=== PATIENT | male | born 1950 | race Caucasian/White ===

== ENCOUNTER 2017-06-18 10:19 | Outpatient (CLI) | payer OTHER ==
[~2017-06-18 10:19] MED LIST: COZAAR50 MG; GLUMETZA1000 MG; LIPITOR40 MG
== END 2017-06-18 10:30 | disposition home or self-care (01) ==
LOC: LAB 10:19
DX: G44.209 Tension-type headache, unspecified, not intractable (principal); G44.219 Episodic tension-type headache, not intractable

== ENCOUNTER → 2017-06-19 | Outpatient (CLI) | payer OTHER | END | disposition home or self-care (01) | LOC: MRI 08:45 | DX: G44.219 Episodic tension-type headache, not intractable (principal); G44.209 Tension-type headache, unspecified, not intractable; G30.8 Other Alzheimer's disease | CPT/HCPCS: 70551 ==

== ENCOUNTER 2018-11-02 09:36 | Outpatient (CLI) | payer OTHER | END 2018-11-02 15:24 | disposition home or self-care (01) | LOC: LAB 09:36 | DX: B34.8 Other viral infections of unspecified site (principal) ==

== ENCOUNTER → 2018-11-26 10:20 | Outpatient (CLI) | payer OTHER | END | disposition home or self-care (01) | LOC: LAB 10:20 | DX: D72.820 Lymphocytosis (symptomatic) (principal); N40.0 Benign prostatic hyperplasia without lower urinary tract symptoms; Z11.4 Encounter for screening for human immunodeficiency virus [HIV] ==

== ENCOUNTER → 2018-11-30 12:01 | Outpatient (CLI) | payer OTHER | END | disposition home or self-care (01) | LOC: LAB 12:01 | DX: D72.820 Lymphocytosis (symptomatic) (principal) ==

== ENCOUNTER → 2018-12-03 | Outpatient (CLI) | payer OTHER | END | disposition home or self-care (01) | LOC: TOM 08:16 | DX: D72.820 Lymphocytosis (symptomatic) (principal) | CPT/HCPCS: 71270; 74177; Q9965 ==

== ENCOUNTER → 2019-07-22 10:03 | Outpatient (CLI) | payer OTHER | END | disposition home or self-care (01) | LOC: LAB 10:03 | PROVIDERS: ATTEND Internal Medicine | DX: Z20.828 Contact with and (suspected) exposure to other viral communicable diseases (principal); Z72.810 Child and adolescent antisocial behavior; M47.9 Spondylosis, unspecified; D72.820 Lymphocytosis (symptomatic); Z86.73 Personal history of transient ischemic attack (TIA), and cerebral infarction without residual deficits; R51 Headache; E55.9 Vitamin D deficiency, unspecified; E11.69 Type 2 diabetes mellitus with other specified complication; E78.00 Pure hypercholesterolemia, unspecified; I13.10 Hypertensive heart and chronic kidney disease without heart failure, with stage 1 through stage 4 chronic kidney disease, or unspecified chronic kidney disease; E11.22 Type 2 diabetes mellitus with diabetic chronic kidney disease; N18.3 Chronic kidney disease, stage 3 (moderate); E11.39 Type 2 diabetes mellitus with other diabetic ophthalmic complication; H40.89 Other specified glaucoma ==

== ENCOUNTER 2019-07-25 11:35 | Outpatient (CLI) | payer OTHER | END 2019-07-25 15:00 | disposition home or self-care (01) | LOC: LAB 11:35 | PROVIDERS: ATTEND Internal Medicine Hematology & Oncology | DX: D72.810 Lymphocytopenia (principal); M47.899 Other spondylosis, site unspecified; N40.0 Benign prostatic hyperplasia without lower urinary tract symptoms ==

== ENCOUNTER 2021-02-05 07:28 | Outpatient (CLI) | payer OTHER | END 2021-02-05 07:35 | disposition home or self-care (01) | LOC: SONOGRAMA 07:28 | PROVIDERS: ATTEND Internal Medicine Hematology & Oncology | DX: R07.89 Other chest pain (principal); Z78.9 Other specified health status; D72.820 Lymphocytosis (symptomatic) ==

== ENCOUNTER 2021-03-02 09:21 | Emergency (ER) | payer OTHER ==
[~2021-03-02] VITALS: Ht 177.8 cm; Wt 72.6 kg
== END 2021-03-02 10:58 | disposition home or self-care (01) ==
LOC: ER 09:21
DX: K59.00 Constipation, unspecified (principal)

== ENCOUNTER 2021-03-05 09:17 | Outpatient (CLI) | payer OTHER | END 2021-03-05 15:00 | disposition home or self-care (01) | LOC: LAB 09:17 | PROVIDERS: ATTEND Internal Medicine | DX: D64.89 Other specified anemias (principal); I11.9 Hypertensive heart disease without heart failure; E11.69 Type 2 diabetes mellitus with other specified complication; E78.00 Pure hypercholesterolemia, unspecified; R80.8 Other proteinuria; R19.5 Other fecal abnormalities; E03.4 Atrophy of thyroid (acquired); E53.8 Deficiency of other specified B group vitamins; N39.0 Urinary tract infection, site not specified; R94.5 Abnormal results of liver function studies; D56.5 Hemoglobin E-beta thalassemia; R97.20 Elevated prostate specific antigen [PSA] ==

== ENCOUNTER 2021-03-09 06:54 | Emergency (ER) | payer OTHER ==
[~2021-03-09] VITALS: Ht 177.8 cm; Wt 72.6 kg
[2021-03-09] MEDS ORDERED: DULCOLAX STOOL100 M1 PO (12:08)
== END 2021-03-09 12:21 | disposition home or self-care (01) ==
LOC: ER 06:54
DX: R07.89 Other chest pain (principal); K59.09 Other constipation

== ENCOUNTER 2021-05-28 08:00 | Outpatient (CLI) | payer OTHER ==
[~2021-05-28 08:00] MED LIST changes: +DULCOLAX STOOL100 M1 PO
== END 2021-05-28 08:30 | disposition home or self-care (01) ==
LOC: PPH VACUNA 08:00
PROVIDERS: ATTEND Emergency Medicine Pediatric Emergency Medicine
DX: Z23 Encounter for immunization (principal)

== ENCOUNTER 2021-11-12 08:29 | Outpatient (CLI) | payer OTHER | END 2021-11-12 08:42 | disposition home or self-care (01) | LOC: TOM 08:29 | PROVIDERS: ATTEND Internal Medicine Gastroenterology | DX: R10.33 Periumbilical pain (principal) | CPT/HCPCS: 74177; Q9965 ==

== ENCOUNTER 2021-11-15 10:12 | Outpatient (CLI) | payer OTHER | END 2021-11-15 10:22 | disposition home or self-care (01) | LOC: PPH VACUNA 10:12 | PROVIDERS: ATTEND Emergency Medicine Pediatric Emergency Medicine | DX: Z23 Encounter for immunization (principal) ==

== ENCOUNTER 2022-10-01 08:36 | Outpatient (CLI) | payer OTHER | END 2022-10-01 08:44 | disposition home or self-care (01) | LOC: NUCLEAR 08:36 | PROVIDERS: ATTEND Urology | DX: C61 Malignant neoplasm of prostate (principal) | CPT/HCPCS: 78306; A9503 ==

== ENCOUNTER 2023-01-22 13:30 | Outpatient (CLI) | payer OTHER | END 2023-01-22 13:36 | disposition home or self-care (01) | LOC: RAD 13:30 | DX: M25.552 Pain in left hip (principal); M54.50 Low back pain, unspecified; Z88.0 Allergy status to penicillin ==